=== PATIENT | male | born 1995 | race Hispanic/Latino ===

== ENCOUNTER → 2018-01-12 | Day surgery (SDC) | payer BC ==
[~2018-01-12] MED LIST: Bupivacaine HCl 0.5%/Epinephrine 1:200,000/PF 30 ml Vial ONE; Bupivacaine/Epinephrine 0.25% 30 ML VIAL ONE; Dexamethasone 20 MG/5 ML VIAL ONE; Famotidine/PF 20 mg/2ml Vial ONE; Fentanyl 100 MCG/2 ML VIAL ONE; HYDROcodone/Acetaminophen 5/325 mg Tablet ONE; Ketorolac Tromethamine 30 MG/ML VIAL ONE; Lidocaine 1% PF 5 ML VIAL ONE; Midazolam HCl 2 mg/2 ml Vial ONE; Ondansetron HCl/PF 4 MG/2 ML Vial ONE; PROPOFOL 200 MG/20 ML VIAL ONE; Piperacillin/Tazobactam 3.375 GM VIAL ONE; SUGAMMADEX SODIUM 500 MG/5 ML VIAL ONE; Succinylcholine Chloride 20 MG/ML 10 ml SYRINGE FS ONE
--- NOTE | 2018-01-12 09:13 | HP ---
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 He presents to [facility] Emergency Room with a 6-8 hour history of right lower quadrant pain, anorexia, increased pain with m ovement, without nausea or vomiting. He is noted to have a white count of 10.9, hemoglobin 16. Live r function tests normal. He underwent a CAT scan of the abdomen and pelvis at [facility] Emergency [facility] om noting findings consistent with appendicitis. The patient was transferred for a laparoscopic appe ndectomy this morning. He received Zosyn 4.5 grams and IV fluids in the few hours prior to transfer . ALLERGIES: None. TOBACCO: None. ALCOHOL: None. MEDICATIONS: None. PAST SURGICAL/MEDICAL HISTORY: Noncontributory. REVIEW OF SYSTEMS: Noncontributory. FAMILY HISTORY: Noncontributory. PHYSICAL EXAMINATION: VITAL SIGNS: 21.87 BMI, 100.6 degrees, 88, 18, 121/74. HEENT: Unremarkable. LUNGS: Clear to auscultation. CARDIAC: Regular rate and rhythm without murmur or gallop. ABDOMEN: Soft, tenderness in right lower quadrant with guarding and rebound. EXTREMITIES: Unremarkable. No ankle edema. NEUROLOGIC: Intact. Cranial nerves intact. LYMPH: No lymphadenopathy in neck, axillary groin. ASSESSMENT AND PLAN: Acute appendicitis. Recommend laparoscopic video appendectomy. Risk of infect ion, bleeding, visceral injury explained. Possibility of open procedure discussed. Questions answer ed. PLAN: Laparoscopic video appendectomy after another dose of intravenous antibiotics this morning, To Gumaro administered.
--- NOTE | 2018-01-12 09:34 | OP ---
DATE OF PROCEDURE: 01/12/2018 PREOPERATIVE DIAGNOSIS: Acute appendicitis. PROCEDURE: Laparoscopic video appendectomy. SURGEON: Jose Miguel Stout M.D. ANESTHESIA: General. Local 0.5% Marcaine with epinephrine, 30 mL. FINDINGS: Acute appendicitis without purulence. PROCEDURE: The patient was taken to the operating room where under general anesthesia, Pink cathete r placed at the beginning of the procedure, removed at the end. Abdomen clipped of hair, prepared wi th ChloraPrep, draped in routine fashion. 0.5% Marcaine with epinephrine infiltrated into skin and s ubcutaneous tissue about all port sites, total volume used. Infraumbilical incision made. Pneumoper itoneum to 15 mmHg obtained with the Veress needle, replacing with a 5 port and video laparoscope ins erted. Right lateral subcostal incision made and a 5 port placed. Suprapubic incision made and a 12 port placed. Appendix was noted to be acutely inflamed without purulence. Mesoappendix taken down with LigaSure. Stump of the appendix divided with Endo-RADHA blue load staple across the cecal base. Appendix removed through the trocar and submitted to pathology. Bag was not required. Suprapubic fa scia approximated with 0 Vicryl, as good hemostasis ensured as the area was irrigated. Irrigant and pneumoperitoneum evacuated. All this instruments removed and all skin incisions approximated with in terrupted subdermal 4-0 Monocryl and DermaGlue applied.
== END ==
LOC: SDC 06:19
PROVIDERS: ATTEND Specialist
PROC: 0DTJ4ZZ Resection of Appendix, Percutaneous Endoscopic Approach (ICD-10-PCS; principal; 2018-01-12)
DX: K35.80 Unspecified acute appendicitis (principal)
CPT/HCPCS: 88304; J0131; J0670; J2250; J2543; J3010; S0028